=== PATIENT | female | born 1980 | race Caucasian/White ===

== ENCOUNTER → 2016-07-22 | Outpatient (CLI) | payer OTHER ==
[~2016-07-22] MED LIST: ALBUTEROL2.5 MG/0.5 INH; AMOXICILLIN500 MG PO; AMOXIL500 MG PO; ANAPROX DS550 MG PO; ANTIDEPRESSANT; AUGMENTIN ES-6100 ML PO; BACTRIM DS 8001 TA1 PO; BACTRIM DS 8001 TAB PO; BACTROBAN OINT0.9 GM NAS; CEPHALEXIN500 M1 PO; CIPRO250 MG PO; CIPRODEX 0.3%-7.5 ML OT; CLARITIN10 MG PO; CLINDAMYCIN300 MG PO; DIFLUCAN150 MG PO; DOXYCYCLINE100 M3 PO; FLONASE 0.05% 121 EA NAS; HYDROXYZINE HCL50 MG PO; KEFLEX500 MG PO; MECLIZINE HCL25 M2 PO; MEDROL DOSEPAK4 MG PO; MUPIROCIN2% TP; NORCO 325 MG-51 TAB PO; PEPCID20 MG PO; PREDNISONE10 MG PO; PRENATAL1 TA1 PO; PROZAC20 MG PO; Percocet 325 MG1 TAB PO; SEPTRA DS 800 M1 TAB PO; TRAMADOL HCL50 MG PO; VICODIN 5/500 505 MG PO; VISTARIL25 M2 PO; ZITHROMAX Z PA250 MG PO
== END | disposition home or self-care (01) ==
LOC: MRI 02:13
DX: H81.49 Vertigo of central origin, unspecified ear (principal); R42 Dizziness and giddiness; R51 Headache

== ENCOUNTER 2017-05-24 17:15 | Emergency (ER) | payer OTHER ==
[~2017-05-24] VITALS: Ht 170.1 cm; Wt 81.6 kg
[2017-05-24] MEDS ORDERED: ESCITALOPRAM OX20 MG PO (17:25)
[2017-05-24] MEDS ORDERED: KETOROLAC10 MG PO (19:24)
== END 2017-05-24 19:31 | disposition home or self-care (01) ==
LOC: ED 17:15
DX: S52.502A Unspecified fracture of the lower end of left radius, initial encounter for closed fracture (principal); F17.200 Nicotine dependence, unspecified, uncomplicated; Z88.6 Allergy status to analgesic agent; Z88.1 Allergy status to other antibiotic agents; Z88.8 Allergy status to other drugs, medicaments and biological substances; Z79.899 Other long term (current) drug therapy; W01.0XXA Fall on same level from slipping, tripping and stumbling without subsequent striking against object, initial encounter; Y93.89 Activity, other specified; Y92.009 Unspecified place in unspecified non-institutional (private) residence as the place of occurrence of the external cause; Y99.8 Other external cause status

== ENCOUNTER → 2017-06-09 | Outpatient (CLI) | payer OTHER ==
[~2017-06-09] MED LIST changes: +ESCITALOPRAM OX20 MG PO; +KETOROLAC10 MG PO
== END | disposition home or self-care (01) ==
LOC: ORTHO 02:14
DX: S52.572D Other intraarticular fracture of lower end of left radius, subsequent encounter for closed fracture with routine healing (principal); X58.XXXD Exposure to other specified factors, subsequent encounter

== ENCOUNTER 2017-11-16 11:21 | Emergency (ER) | payer OTHER ==
[~2017-11-16] VITALS: Ht 170.1 cm; Wt 63.5 kg
[2017-11-16] MEDS ORDERED: CEPHALEXIN500 M1 PO (11:38)
[2017-11-16] MEDS ORDERED: SEPTDS PO (11:38)
[2017-11-17] MEDS ORDERED: WELLBUTRIN SR150 MG PO (21:38)
[2017-11-17] MEDS ORDERED: Percocet 325 MG1 TAB PO (23:55)
[2017-11-17] MEDS ORDERED: Orphenadrine C100 MG PO (23:56)
[2017-11-17] MEDS ORDERED: ANAPROX DS550 MG PO (23:56)
== END 2017-11-16 11:52 | disposition home or self-care (01) ==
LOC: ED 11:21
DX: L02.412 Cutaneous abscess of left axilla (principal); N63.10 Unspecified lump in the right breast, unspecified quadrant; Z98.890 Other specified postprocedural states; Z79.899 Other long term (current) drug therapy; Z88.5 Allergy status to narcotic agent; Z88.3 Allergy status to other anti-infective agents; Z88.1 Allergy status to other antibiotic agents

== ENCOUNTER 2017-11-17 20:13 | Emergency (ER) | payer OTHER ==
[~2017-11-17] VITALS: Ht 170.1 cm; Wt 68.0 kg
--- NOTE | ~2017-11-17 | EKG ---
[place], [place] ELECTROCARDIOGRAM REPORT NAME: VIKI PHIPPS UNIT #: [id number] ROOM: DOCTOR: EPIPHANY DRAFT REPORT BIRTHDATE: [birth year] [facility] Test Date: 2017-11-17 Test Time: 20:29:55 Pat Name: VIKI PHIPPS Department: Room: Gender: F Block Handler: NURSE : 1980 Requested By: ROSALIE HERNANDEZ Order Number: [id number] Reading MD: Torsten Abdul MD Measurements Intervals [place] Rate: 88 P: 64 ND: 115 QRS: 33 QRSD: 95 T: 34 QT: 343 QTc: 415 Interpretive Statements sinus rhythm..........................normal P axis, V-rate 50- 99 borderline short ND interval.................ND int 120 Probable left atrial enlargement........P 50ms, RSR in V1 or V2, right VCD QRS area positive \T\ R V1/V2 No previous ECG available for comparison Electronically Signed On 11-18-2017 11:48:51 PDT by Torsten Abdul MD CM:EKGRPT:ELECTROCARDIOGRAM REPORT [id number] ROSALIE HERNANDEZ MD EPIPHANY DRAFT REPORT ROSALIE HERNANDEZ MD
--- NOTE | ~2017-11-17 | EKG ---
[place], [place] ELECTROCARDIOGRAM REPORT NAME: VIKI PHIPPS UNIT #: [id number] ROOM: DOCTOR: EPIPHANY DRAFT REPORT BIRTHDATE: [birth year] [facility] Test Date: 2017-11-17 Test Time: 21:46:41 Pat Name: VIKI PHIPPS Department: ER Room: 9 Gender: F Restaurant Server: TL : 1980 Requested By: ROSALIE HERNANDEZ Order Number: [id number] Reading MD: Torsten Abdul MD Measurements Intervals [place] Rate: 85 P: 64 MA: 124 QRS: 12 QRSD: 94 T: 24 QT: 344 QTc: 409 Interpretive Statements Sinus rhythm Left atrial enlargement RSR' in V1 or V2, right VCD Baseline wander in lead(s) V1,V6 Abnormal EKG. Compared prior study of 11/17/17, no changes noted. Electronically Signed On 11-18-2017 11:54:32 PDT by Torsten Abdul MD CM:EKGRPT:ELECTROCARDIOGRAM REPORT 1154 ROSALIE HERNANDEZ MD EPIPHANY DRAFT REPORT ROSALIE HERNANDEZ MD
--- NOTE | ~2017-11-17 | EKG ---
[place], [place] ELECTROCARDIOGRAM REPORT NAME: VIKI PHIPPS UNIT #: [id number] ROOM: DOCTOR: EPIPHANY DRAFT REPORT BIRTHDATE: [birth year] [facility] Test Date: 2017-11-17 Test Time: 22:35:28 Pat Name: VIKI PHIPPS Department: Room: Gender: F Performance Improvement Specialist: : 1980 Requested By: ROSALIE HERNANDEZ Order Number: [id number] Reading MD: Torsten Abdul MD Measurements Intervals [place] Rate: 75 P: 61 [place]: 132 QRS: 12 QRSD: 83 T: 22 QT: 359 QTc: 401 Interpretive Statements Sinus rhythm Baseline wander in lead(s) V5 Normal EKG. Electronically Signed On 11-18-2017 11:57:08 PDT by Torsten Abdul MD CM:EKGRPT:ELECTROCARDIOGRAM REPORT [id number] ROSALIE HERNANDEZ MD EPIPHANY DRAFT REPORT ROSALIE HERNANDEZ MD
[~2017-11-17 20:13] MED LIST changes: +SEPTDS PO
[2017-11-17 21:08] LABS: BASO % 0.4 % (0.0-1.0); EOS # 0.1 10*3/uL (0.0-0.4); EOS % 1.5 % (1.0-4.0); HEMOGLOBIN 13.6 g/dl (12.0-16.0); LYMPH # 2.6 10*3/uL (1.3-4.4); LYMPH % 27.7 % (27.0-41.0); MEAN CELL VOLUME 91.5 fl (81.0-99.0); MEAN CORPUSCULAR HGB 30.4 pg (27.0-31.0); MEAN CORPUSCULAR HGB CONC 33.2 g/dl (33.0-37.0); MEAN PLATELET VOLUME 11.6 fl (9.6-12.3); MONO # 0.5 10*3/uL (0.1-1.0); MONO % 4.9 % (3.0-9.0); NEUT # 6.2 10*3/uL (2.3-7.9); NEUT % 65.2 % (47.0-73.0); PLATELET COUNT AUTOMATED 228 10*3/uL (130-400); RED BLOOD COUNT 4.48 10*6/uL (4.10-5.10); RED CELL DISTRI WIDTH 12.3 % (0-14.5); WHITE BLOOD COUNT 9.5 10*3/uL (4.8-10.8)
[2017-11-17 21:19] LABS: ACT PARTIAL THROMBO TIME 23.1 SECONDS (20.8-31.5)
[2017-11-17 21:25] LABS: ALBUMIN 3.7 gm/dl (3.1-4.5); ALKALINE PHOSPHATASE 96 U/L (45-117); BUN 12 mg/dl (7-24); CHLORIDE 111 mmol/L (98-107); POTASSIUM 3.9 mmol/L (3.5-5.1); SGOT/AST 14 IU/L (3-35); SGPT/ALT 19 U/L (12-78); SODIUM 142 mmol/L (136-145); TOTAL PROTEIN 7.1 gm/dL (6.4-8.2); TROPONIN I < 0.015 ng/ml (<0.045)
[2017-11-17 21:36] LABS: BILIRUBIN NEGATIVE (NEGATIVE); BLOOD 1+ (NEGATIVE); CLARITY CLEAR (CLEAR); COLOR YELLOW (YELLOW); GLUCOSE NEGATIVE (NEGATIVE); KETONE NEGATIVE (NEGATIVE); LEUKO ESTERASE NEGATIVE (NEGATIVE); NITRITE NEGATIVE (NEGATIVE); UROBILINOGEN 0.2 E.U./dl (0.2-1.0)
[2017-11-17] MEDS ORDERED: WELLBUTRIN SR150 MG PO (21:38)
[2017-11-17 21:44] LABS: BACTERIA 1+; URINE AMPHETAMINES < 1000 (1000ng/ml); URINE BARBITURATES < 200 (200ng/ml); URINE BENZODIAZEPINES < 200 (200ng/ml); URINE CANNABINOIDS (THC) < 50 (50ng/ml); URINE COCAINE < 300 (300ng/ml); URINE METHADONE < 300 (300ng/ml); URINE OPIATES < 300 (300ng/ml)
[2017-11-17 21:45] LABS: URINE PHENCYCLIDINE < 25 (25ng/ml)
[2017-11-17] MEDS ORDERED: Percocet 325 MG1 TAB PO (23:55)
[2017-11-17] MEDS ORDERED: ANAPROX DS550 MG PO (23:56)
[2017-11-17] MEDS ORDERED: Orphenadrine C100 MG PO (23:56)
== END 2017-11-18 00:03 | disposition home or self-care (01) ==
LOC: ED 20:13
PROVIDERS: Emergency Medicine Emergency Medical Services
DX: R07.89 Other chest pain (principal); R09.1 Pleurisy; M62.838 Other muscle spasm; E66.9 Obesity, unspecified; F17.200 Nicotine dependence, unspecified, uncomplicated; Z98.890 Other specified postprocedural states; Z79.899 Other long term (current) drug therapy; Z88.5 Allergy status to narcotic agent; Z88.3 Allergy status to other anti-infective agents; Z88.1 Allergy status to other antibiotic agents

== ENCOUNTER 2019-11-25 19:04 | Emergency (ER) | payer OTHER ==
[~2019-11-25] VITALS: Ht 170.1 cm; Wt 80.3 kg
[~2019-11-25 19:04] MED LIST changes: +Orphenadrine C100 MG PO; +WELLBUTRIN SR150 MG PO
[2019-11-25] MEDS ORDERED: DEPO PROVER150 MG/M1 IM (19:13)
[2019-11-25 19:40] LABS: BASO # 0.1 10*3/uL (0.0-0.1); BASO % 0.3 % (0.0-1.0); EOS # 0.1 10*3/uL (0.0-0.4); EOS % 0.7 % (1.0-4.0); HEMATOCRIT 41.6 % (37.0-47.0); LYMPH # 1.8 10*3/uL (1.3-4.4); LYMPH % 12.3 % (27.0-41.0); MEAN CELL VOLUME 91.8 fl (81.0-99.0); MEAN CORPUSCULAR HGB 29.8 pg (27.0-31.0); MEAN CORPUSCULAR HGB CONC 32.5 g/dl (33.0-37.0); MEAN PLATELET VOLUME 11.1 fl (9.6-12.3); MONO # 0.5 10*3/uL (0.1-1.0); MONO % 3.7 % (3.0-9.0); NEUT # 12.2 10*3/uL (2.3-7.9); NEUT % 82.7 % (47.0-73.0); PLATELET COUNT AUTOMATED 242 10*3/uL (130-400); RED BLOOD COUNT 4.53 10*6/uL (4.10-5.10); RED CELL DISTRI WIDTH 12.3 % (0-14.5); WHITE BLOOD COUNT 14.7 10*3/uL (4.8-10.8)
[2019-11-25 19:51] LABS: ACT PARTIAL THROMBO TIME 26.6 SECONDS (20.0-32.1)
[2019-11-25 19:56] LABS: ALBUMIN 3.8 gm/dl (3.1-4.5); ALKALINE PHOSPHATASE 106 U/L (45-117); BUN 15 mg/dl (7-24); CHLORIDE 110 mmol/L (98-107); CREATININE 0.89 mg/dL (0.55-1.02); POTASSIUM 3.6 mmol/L (3.5-5.1); SGOT/AST 13 IU/L (3-35); SGPT/ALT 21 U/L (12-78); SODIUM 141 mmol/L (136-145); TOTAL PROTEIN 6.9 gm/dL (6.4-8.2)
== END 2019-11-26 00:15 | disposition short-term general hospital (02) ==
LOC: ED 19:04
PROVIDERS: Nurse Practitioner Family
DX: S82.042B Displaced comminuted fracture of left patella, initial encounter for open fracture type I or II (principal); R79.1 Abnormal coagulation profile; Z88.6 Allergy status to analgesic agent; Z88.1 Allergy status to other antibiotic agents; Z79.899 Other long term (current) drug therapy; V89.2XXA Person injured in unspecified motor-vehicle accident, traffic, initial encounter; Y93.89 Activity, other specified; Y92.89 Other specified places as the place of occurrence of the external cause; Y99.8 Other external cause status

== ENCOUNTER → 2020-03-24 | Outpatient (CLI) | payer OTHER ==
[~2020-03-24] MED LIST changes: +DEPO PROVER150 MG/M1 IM
== END | disposition home or self-care (01) ==
LOC: COVID19 11:39
PROVIDERS: ATTEND Internal Medicine
DX: U07.1 COVID-19 (principal)

== ENCOUNTER 2020-10-31 22:05 | Emergency (ER) | payer OTHER ==
[~2020-10-31] VITALS: Ht 170.1 cm; Wt 63.5 kg
[2020-11-01] MEDS ORDERED: NAPROSYN500 MG PO (00:04)
== END 2020-11-01 00:15 | disposition home or self-care (01) ==
LOC: ED 22:05
DX: M25.562 Pain in left knee (principal); Z88.5 Allergy status to narcotic agent; Z88.3 Allergy status to other anti-infective agents; Z88.1 Allergy status to other antibiotic agents

== ENCOUNTER 2023-01-04 18:14 | Emergency (ER) | payer OTHER ==
[~2023-01-04] VITALS: Ht 170.1 cm; Wt 68.0 kg
[~2023-01-04 18:14] MED LIST changes: +NAPROSYN500 MG PO
[2023-01-04 18:40] LABS: BASO % 0.3 % (0.0-1.0); EOS # 0.1 10*3/uL (0.0-0.4); EOS % 1.2 % (1.0-4.0); HEMATOCRIT 42.9 % (37.0-47.0); LYMPH # 3.1 10*3/uL (1.3-4.4); LYMPH % 26.8 % (27.0-41.0); MEAN CELL VOLUME 93.3 fl (81.0-99.0); MEAN CORPUSCULAR HGB 31.1 pg (27.0-31.0); MEAN CORPUSCULAR HGB CONC 33.3 g/dl (33.0-37.0); MEAN PLATELET VOLUME 10.5 fl (9.6-12.3); MONO # 0.5 10*3/uL (0.1-1.0); MONO % 4.5 % (3.0-9.0); NEUT # 7.8 10*3/uL (2.3-7.9); NEUT % 66.9 % (47.0-73.0); PLATELET COUNT AUTOMATED 287 10*3/uL (130-400); RED CELL DISTRI WIDTH 12.5 % (0-14.5); WHITE BLOOD COUNT 11.7 10*3/uL (4.8-10.8)
[2023-01-04 18:53] LABS: ACT PARTIAL THROMBO TIME 30.7 SECONDS (20.0-32.1)
[2023-01-04] MEDS ORDERED: VENLAFAXINE H37.5 M5 PO (19:00)
[2023-01-04 19:06] LABS: ALKALINE PHOSPHATASE 98 U/L (46-116); BUN 8 mg/dl (9-23); CHLORIDE 109 mmol/L (98-107); SGPT/ALT 23 U/L (10-49)
[2023-01-04 19:39] LABS: BILIRUBIN Negative (Negative); BLOOD Negative (Negative); CLARITY Clear (Clear); COLOR Yellow (Yellow); GLUCOSE Negative (Negative); KETONE Negative (Negative); LEUKO ESTERASE Negative (Negative); NITRITE Negative (Negative); SPECIFIC GRAVITY <= 1.005 (1.001-1.030); UROBILINOGEN 0.2 E.U./dl (0.0-1.0)
[2023-01-04 19:56] LABS: RBC 0-2 rbc/hpf (0-2)
== END 2023-01-04 20:08 | disposition home or self-care (01) ==
LOC: ED 18:14
PROVIDERS: Physician Assistant Medical; Student in an Organized Health Care Education/Training Program
DX: R07.89 Other chest pain (principal); R06.02 Shortness of breath; F32.A Depression, unspecified; Z88.5 Allergy status to narcotic agent; Z88.8 Allergy status to other drugs, medicaments and biological substances; Z98.890 Other specified postprocedural states

== ENCOUNTER 2023-02-20 15:30 | Emergency (ER) | payer OTHER ==
[~2023-02-20] VITALS: Wt 83.9 kg
[~2023-02-20 15:30] MED LIST changes: +VENLAFAXINE H37.5 M5 PO
== END 2023-02-20 18:11 | disposition home or self-care (01) ==
LOC: ED 15:30
DX: M25.512 Pain in left shoulder (principal); M54.2 Cervicalgia; F32.A Depression, unspecified; Z88.5 Allergy status to narcotic agent; Z88.8 Allergy status to other drugs, medicaments and biological substances; Z98.890 Other specified postprocedural states

== ENCOUNTER 2023-12-09 20:42 | Emergency (ER) | payer OTHER ==
[~2023-12-09] VITALS: Ht 170.1 cm; Wt 81.6 kg
[2023-12-09 21:02] LABS: BASO % 0.3 % (0.0-1.0); EOS # 0.2 10*3/uL (0.0-0.4); EOS % 1.3 % (1.0-4.0); HEMATOCRIT 43.6 % (37.0-47.0); LYMPH # 3.2 10*3/uL (1.3-4.4); LYMPH % 27.3 % (27.0-41.0); MEAN CELL VOLUME 93.2 fl (81.0-99.0); MEAN CORPUSCULAR HGB 31.2 pg (27.0-31.0); MEAN CORPUSCULAR HGB CONC 33.5 g/dl (33.0-37.0); MEAN PLATELET VOLUME 10.4 fl (9.6-12.3); MONO # 0.6 10*3/uL (0.1-1.0); MONO % 5.2 % (3.0-9.0); NEUT # 7.8 10*3/uL (2.3-7.9); NEUT % 65.5 % (47.0-73.0); PLATELET COUNT AUTOMATED 276 10*3/uL (130-400); RED BLOOD COUNT 4.68 10*6/uL (4.10-5.10); RED CELL DISTRI WIDTH 12.6 % (0-14.5); WHITE BLOOD COUNT 11.9 10*3/uL (4.8-10.8)
[2023-12-09 21:13] LABS: ACT PARTIAL THROMBO TIME 28.9 SECONDS (20.0-32.1)
[2023-12-09 21:25] LABS: ALKALINE PHOSPHATASE 120 U/L (46-116); BUN 12 mg/dl (9-23); CHLORIDE 110 mmol/L (98-107); POTASSIUM 3.8 mmol/L (3.4-5.1); SGPT/ALT 28 U/L (5-49); TOTAL PROTEIN 7.3 gm/dL (6.0-8.0)
== END 2023-12-09 23:34 | disposition home or self-care (01) ==
LOC: ED 20:42
PROVIDERS: Nurse Practitioner Family
DX: R07.89 Other chest pain (principal); F32.A Depression, unspecified; R05.9 Cough, unspecified; Z88.5 Allergy status to narcotic agent; Z88.8 Allergy status to other drugs, medicaments and biological substances; Z98.890 Other specified postprocedural states

== ENCOUNTER 2023-12-22 21:11 | Emergency (ER) | payer OTHER ==
[~2023-12-22] VITALS: Ht 170.1 cm; Wt 83.9 kg
[2023-12-22] MEDS ORDERED: Ketorolac Tromethamine 30 MG/ML VIAL IV ONE (23:05)
[2023-12-22] MEDS ORDERED: NAPROXEN250 MG PO (23:06)
== END 2023-12-22 23:48 | disposition home or self-care (01) ==
LOC: ED 21:11
DX: S93.402A Sprain of unspecified ligament of left ankle, initial encounter (principal); M25.562 Pain in left knee; F32.A Depression, unspecified; Z88.5 Allergy status to narcotic agent; Z88.8 Allergy status to other drugs, medicaments and biological substances; Z88.1 Allergy status to other antibiotic agents; Z98.890 Other specified postprocedural states; W01.0XXA Fall on same level from slipping, tripping and stumbling without subsequent striking against object, initial encounter; Y93.89 Activity, other specified; Y92.009 Unspecified place in unspecified non-institutional (private) residence as the place of occurrence of the external cause; Y99.8 Other external cause status